=== PATIENT | female | born 1975 | race Caucasian/White ===

== ENCOUNTER 2021-01-23 13:10 | Emergency (ER) | payer OTHER ==
[~2021-01-23 13:10] MED LIST: ADVAIR 250-501 EACH INH; CLARITIN10 MG PO; EFFEXOR 25 MG T25 MG PO; FLONASE 0.05% N16 GM; HABITROL 21 MG P1 EA TOP; IPRAT-ALBUT 0.5-3 ML INH; MEDROL DOSEPAK 24 MG PO; SINGULAIR10 MG PO; TYLENOL 325MG325 MG PO; VENTOLIN HFA 66.7 GM INH
[2021-01-23 13:52] LABS: HEMOGLOBIN 14.5 gm/dl (12.3-15.3); RED BLOOD COUNT 4.59 M/UL (4.00-5.10); WHITE BLOOD COUNT 11.9 K/UL (4.5-11.0)
[2021-01-23 14:11] LABS: BUN/CREATININE RATIO 13 (0-10)
[2021-01-23] MEDS ORDERED: MECLIZINE HCL25 MG PO ×2 (16:28→16:29)
[2021-01-23] MEDS ORDERED: ZOFRAN ODT 4 MG4 MG SL ×2 (16:28→16:29)
[2021-03-29] MEDS ORDERED: BENADRYL 25MG C25 MG PO (21:04)
== END 2021-01-23 17:00 | disposition home or self-care (01) ==
LOC: ER1 13:10
PROVIDERS: Physician Assistant
DX: T44.6X1A Poisoning by alpha-adrenoreceptor antagonists, accidental (unintentional), initial encounter (principal); R42 Dizziness and giddiness; Z79.899 Other long term (current) drug therapy; F17.200 Nicotine dependence, unspecified, uncomplicated
CPT/HCPCS: 80053; 80307; 83735; 85025; 93005; 96374; 96376; 99284; J2405

== ENCOUNTER 2021-03-29 22:50 | Emergency (ER) | payer OTHER ==
[~2021-03-29 22:50] MED LIST changes: +BENADRYL 25MG C25 MG PO; +MECLIZINE HCL25 MG PO; +ZOFRAN ODT 4 MG4 MG SL
== END 2021-03-30 02:00 | disposition home or self-care (01) ==
LOC: ER1 22:50
DX: R25.8 Other abnormal involuntary movements (principal); M54.2 Cervicalgia; F17.210 Nicotine dependence, cigarettes, uncomplicated
CPT/HCPCS: 70450; 71045; 72125; 80053; 81001; 82550; 82553; 82962; 83874; 84484; 84703; 85025; 85610; 85652; 85730; 86140; 87040; 93005; 96374; 99283; 99284; J1200

== ENCOUNTER → 2021-10-07 | Outpatient (CLI) | payer OTHER | LOC: EMI 08-17 09:00 → MRI 13:30 → EMI 14:00 | DX: R29.6 Repeated falls (principal); R93.0 Abnormal findings on diagnostic imaging of skull and head, not elsewhere classified; M50.322 Other cervical disc degeneration at C5-C6 level; M50.221 Other cervical disc displacement at C4-C5 level | CPT/HCPCS: 70553; 72156; A9577 ==

== ENCOUNTER → 2021-11-08 | Outpatient (CLI) | payer OTHER ==
[2021-11-08 11:40] LABS: GLUCOSE,CSF 62 mg/dL (50-80); TOTAL PROTEIN,CSF 21 mg/dL (20-45)
[2021-11-08 12:06] LABS: WBC (AUTOMATED 0 10^3 (0-5)
[2021-11-08 12:07] LABS: WBC (AUTOMATED 2 10^3 (0-5)
[2021-11-10 16:12] LABS: MYELIN BASIC PROTEIN, CSF 1.9 ng/mL (0.0-3.7)
[2021-11-11 14:14] LABS: CSF IGG INDEX 0.4 (0.0-0.7); IMMUNOGLOBULIN G, QN, SERUM 1224 mg/dL (586-1602)
== END ==
LOC: RAD 07:15 → OR 07:30 → RAD 08:30
PROVIDERS: Psychiatry & Neurology Neurology
DX: G35 Multiple sclerosis (principal)
CPT/HCPCS: 82040; 82784; 82945; 83873; 83916; 84157; 87015; 87070; 87116; 87205; 87210; 89051

== ENCOUNTER 2021-11-14 08:31 | Emergency (ER) | payer OTHER ==
[2021-11-14] MEDS ORDERED: NEURONTIN100 MG PO (09:40)
== END 2021-11-14 10:05 | disposition home or self-care (01) ==
LOC: ER1 08:31
DX: M54.42 Lumbago with sciatica, left side (principal); F17.200 Nicotine dependence, unspecified, uncomplicated
CPT/HCPCS: 99283; J2270

== ENCOUNTER → 2021-12-07 | Outpatient (CLI) | payer OTHER ==
[~2021-12-07] MED LIST changes: +NEURONTIN100 MG PO
== END ==
LOC: KOH-I 08:59
DX: R09.81 Nasal congestion (principal); J32.4 Chronic pansinusitis
CPT/HCPCS: 70486

== ENCOUNTER → 2022-01-03 | Outpatient (CLI) | payer OTHER | LOC: KOH-I 15:39 | DX: M54.50 Low back pain, unspecified (principal); M47.816 Spondylosis without myelopathy or radiculopathy, lumbar region | CPT/HCPCS: 72110 ==

== ENCOUNTER → 2022-04-27 | Outpatient (CLI) | payer OTHER ==
[~2022-04-27] MED LIST changes: +GABAPENTIN100 MG PO; +VENLAFAXINE HC225 MG PO; +VITAMIN D21250 MCG PO
== END ==
LOC: OPSV2 10:00
DX: Z01.818 Encounter for other preprocedural examination (principal)
CPT/HCPCS: 71046; 84703

== ENCOUNTER → 2022-05-05 | Day surgery (SDC) | payer OTHER | END | disposition home or self-care (01) | LOC: OR 06:56 | DX: J32.4 Chronic pansinusitis (principal); J34.3 Hypertrophy of nasal turbinates; E78.5 Hyperlipidemia, unspecified; J44.9 Chronic obstructive pulmonary disease, unspecified; G47.33 Obstructive sleep apnea (adult) (pediatric); F17.210 Nicotine dependence, cigarettes, uncomplicated; E66.9 Obesity, unspecified; F41.9 Anxiety disorder, unspecified; F32.A Depression, unspecified; Z99.89 Dependence on other enabling machines and devices; Z68.37 Body mass index [BMI] 37.0-37.9, adult; Z79.899 Other long term (current) drug therapy | CPT/HCPCS: 84703; C1726; J0171; J0690; J1100; J1170; J2001; J2250; J2405; J2704; J3010 ==